=== PATIENT | female | born 1975 | race Two or more races ===

== ENCOUNTER 2023-10-05 20:09 | Emergency (ER) | payer OTHER ==
[~2023-10-05] VITALS: Ht 180.3 cm; Wt 72.6 kg
[2023-10-05 20:24] VITALS: BP 134/86; TEMP 98.4; O2SAT 98
[2023-10-05] MEDS ORDERED: NAPR-1164 PO (20:35)
[2023-10-05] MEDS ORDERED: KETOROLAC TROMETHAMINE 15 MG/ML VIAL ONE (20:37)
[2023-10-05] MEDS ORDERED: KETOROLAC TROMETHAMINE 15 MG/ML VIAL IM ONE (21:00)
== END 2023-10-05 20:52 | disposition home or self-care (01) ==
LOC: ER 20:26
DX: S13.4XXA Sprain of ligaments of cervical spine, initial encounter (principal); S46.819A Strain of other muscles, fascia and tendons at shoulder and upper arm level, unspecified arm, initial encounter; S50.11XA Contusion of right forearm, initial encounter; Z87.39 Personal history of other diseases of the musculoskeletal system and connective tissue; V43.92XA Unspecified car occupant injured in collision with other type car in traffic accident, initial encounter; Y93.89 Activity, other specified; Y92.89 Other specified places as the place of occurrence of the external cause; Y99.8 Other external cause status
CPT/HCPCS: 99283; J1885